=== PATIENT | female | born 1940 | race Caucasian/White ===

== ENCOUNTER 2016-12-11 17:40 | Emergency (ER) | payer OTHER ==
[2016-12-11 18:06] VITALS: RESP 16; TEMP 97.8
--- NOTE | 2016-12-11 21:49 | PDOC ---
Hand / Wrist Injury HPI - General Chief Complaint: Upper Extremity Problem/Injury Stated Complaint: LEFT WRIST PAIN Date Seen by Provider: 12/11/16 Time Seen by Provider: 17:45 Source: POSITIVE: Patient Exam Limitations: POSITIVE: No limitations Nurse's Notes Reviewed & Considered: Yes - History of Present Illness Initial Comments: The patient is a 76-year-old female who presents to the emergency department with complaints of left wrist pain. She states that while at work yesterday she was lifting a case of water when she felt a pop in her left wrist at the base of her thumb. She stated that she was able to finish working however she has had pain primarily with movement at the base of her left thumb since then. This does not seem to be improving and she therefore presented here to the emergency room for evaluation. She denies any other associated injuries or complaints. She has had previous carpal tunnel in the left hand and wrist however denies any previous injury or fracture. Have you received a tetanus shot in the past 10 years?: Yes - Patient Home Medications Home Medications: Home Medications Flonase 2 spr NASAL QD #1 inhaler 01/31/13 Mometasone/Formoterol [Dulera 200 Mcg/5 Mcg Inhaler] 2 puff INH BID #1 inhaler 01/31/13 Neomycin Mullen/Colist/Hc/Thonzon [Cortisporin-Tc Ear Susp] 10 ml OT 4XW #1 bottle 01/31/13 Apixaban [Eliquis] Sample #1 09/06/13 - Patient Allergies Allergies/Adverse Reactions: Allergies Allergy/AdvReac Type Severity Reaction Status Date / Time codeine Allergy Intermediate VOMITING Unverified 09/06/13 10:12 Penicillins Allergy Intermediate rash Unverified 09/06/13 10:12 morphine Allergy very Unverified 09/06/13 10:12 delayed recovery to drowsiness ranitidine HCl [From Zantac] Allergy rash, Unverified 09/06/13 10:12 swelling escitalopram oxalate AdvReac Intermediate out of Unverified 09/06/13 10:12 [From Lexapro] body feeling Past Medical History - heen HEENT History: Denies History Cardiovascular History: Denies History Respiratory History: Denies History Gastrointestinal History: Denies History Genitourinary History: Denies History Endocrine History: Denies History Musculoskeletal History: Arthritis, Osteoporosis Prosthesis or Implant: No Neurological History: Denies History Blood Disorders: Denies History Psychiatric History: Denies History History of Sexually Transmitted Diseases: No Female Reproductive History: Denies History Obstetrical History: Denies History Cancer History: Denies History In Past Year Been Physically Harmed or Verbally Threatened: No History of MDRO: No History of Other Communicable Diseases: No Tobacco Use: Current Every Day Smoker Alcohol Use: None Substance Use Type: None Previous Surgical History: Yes Type / Date of Surgery: BILATERAL CARPAL TUNNEL Anesthesia Reactions: No Malignant Hyperthermia: No Family History of Malignant Hyperthermia: No Significant Family History: No pertinent family hx Past Medical History Reviewed: Reviewed - No Changes ROS - Limitations ROS Limitations: No Limitations (Review of systems otherwise noncontributory) Hand / Wrist Injury Exam - General Appearance General Appearance: POSITIVE: Alert, Cooperative, No Acute Distress - Extremities Upper Extremity: POSITIVE: Other (examination left wrist does reveal mild swelling to the radial aspect of the wrist, she does have some snuffbox tenderness, no tenderness over the distal radius or ulna. She does have limited range of motion of the wrist secondary to pain, normal sensation and cap refill in her fingers) Neurovascular / Tendon: POSITIVE: Sensation Normal, No Vascular Compromise, Tendon Function Normal Hand / Wrist Injury Progress - Results Reviewed by me Xrays/CTs/US Reviewed by me: Yes Radiology Findings: X-ray of the left wrist reveals no obvious fracture. Radiology interpretation is pending. - Patient's Progress MDM / ED Course: The x-ray of the left wrist does not reveal any obvious fracture. She does have some snuffbox tenderness however she was placed in a Velcro thumb spica splint which she was advised to use for the next week. She was advised to continue Tylenol or ibuprofen as needed for pain. She is to follow-up with orthopedic surgery if continued pain in one week.. - Consult Counseled: POSITIVE: Patient, RE: Radiology Results, RE: DX, RE: Need for F/U Patient Care Time - Estimated PCT Patient Care Time (In Minutes): 15 Vital Signs - Recent Vital Signs Vital Signs: Vital Signs (Last 8 hours) Temp Pulse Resp BP Pulse Ox 12/11/16 17:59 97.8 F 80 16 185/104 95 12/11/16 17:44 97.8 F 80 16 185/104 95 - VS Reviewed Vital Signs Reviewed: Yes Discharge Clinical Impression: Left wrist sprain Discharge Disposition: Discharged to Home Condition: Stable Patient Instructions Given at Discharge: Wrist Sprain (ED) Additional Instructions: The x-ray of the left wrist does not reveal any obvious fracture. Recommend the Velcro wrist splint for comfort for the next week. You can take ibuprofen or Tylenol as needed for pain. Return to the emergency room if increased pain or swelling, numbness, worsening or change in symptoms. Recommend follow-up with orthopedic surgery if continued pain in one week. Follow Up With: NONE,NONE [Primary Care Provider] -
--- NOTE | 2016-12-12 10:57 | DI ---
XR WRIST COMPLETE MIN 3VW,12/11/2016 5:46 PM: Clinical History: Injury yesterday. Previous Exam: None at this facility. Findings: 3 views of the left wrist are obtained, and demonstrate a lucency extending through the distal pole o f the navicular not well seen on this exam. The lucency appears to represent the margin of the underl radha trapezium. Radiocarpal joint is unremarkable. There is mild diffuse osteopenia. Impression: Lucency involving the distal pole of the scaphoid worrisome for a scaphoid fracture although this may represent overlying shadows. Consider navicular view for further evaluation and correlate with snuff box tenderness.
== END 2016-12-11 18:34 | disposition home or self-care (01) ==
LOC: ER 17:40
DX: S63.502A Unspecified sprain of left wrist, initial encounter (principal); X50.0XXA Overexertion from strenuous movement or load, initial encounter; Y99.0 Civilian activity done for income or pay
CPT/HCPCS: 73110; 99282

== ENCOUNTER 2019-03-14 17:11 | Inpatient (IN) ==
[2019-03-14] MEDS ORDERED: methylPREDNISolone 125 MG/2 ML VIAL IVP ONE (17:32)
[2019-03-14] MEDS ORDERED: cefTRIAXone Inj 2 GM in Sodium Chloride 0.9% 100 ML IV ONE (17:32)
[2019-03-14] MEDS ORDERED: Sodium Chloride 0.9% 500 ML PRIMARY IV ONE (17:35)
[2019-03-14 17:44] LABS: BASOPHILS # (AUTO) 0.05 10*3/UL; BASOPHILS % (AUTO) 0.3 % (0-1); EOSINOPHILS # (AUTO) 0.05 10*3/UL; EOSINOPHILS % (AUTO) 0.3 % (0-8); Hematocrit [HCT] 42.8 % (37.0-47.0); Hemoglobin [HGB] 13.7 g/dL (12.0-16.0); LYMPHOCYTES # (AUTO) 1.58 10*3/uL; MEAN CORPUSCULAR VOLUME 92.4 FL (81-99); MEAN PLATELET VOLUME 9.1 FL (7.4-12.2); MONOCYTES # (AUTO) 1.08 10*3/UL (0.3-0.8); MONOCYTES % (AUTO) 7.4 % (5-15); NEUTROPHILS # (AUTO) 11.71 10*3/UL; NEUTROPHILS % (AUTO) 80.9 % (50-80); RED BLOOD COUNT 4.63 10^6/uL (4.20-5.40)
[2019-03-14 17:45] LABS: PLATELET MORPHOLOGY COMMENT NORMAL MORPHOLOGY (NORM); RBC MORPHOLOGY COMMENT NORMAL MORPHOLOGY (NORM); WBC MORPHOLOGY COMMENT NORMAL MORPHOLOGY (NORM)
[2019-03-14 17:53] LABS: BLOOD UREA NITROGEN 9 mg/dL (7-22); SERUM ALBUMIN 3.8 g/dL (3.5-4.8)
[2019-03-14] MEDS ORDERED: ALBUTEROL SULFATE 2.5 MG/3 ML NEB ONE (18:54)
[2019-03-14 18:58] LABS: BILIRUBIN,URINE SMALL (NEG); CLARITY,URINE CLEAR (CLEAR); COLOR,URINE YELLOW (Y); GLUCOSE, URINE (UA) NEGATIVE (NEG); OCCULT BLOOD,URINE NEGATIVE (NEG); PROTEIN,URINE TRACE mg/dl (NEG); URINE SAMPLE TYPE CLEAN CATCH URINE
[2019-03-14] MEDS ORDERED: ACETAMINOPHEN 325 MG TABLET PO ONE (19:23)
[2019-03-14 19:31] LABS: ABG BASE EXCESS -3 MMOL/L (-2-2); ABG OXYGEN SATURATION 94 % (90-100); ABG PCO2 35.9 MMHG (34-38); ABG PO2 71 MMHG (65-75); ALLEN TEST accept; COLLECTION SITE R Radial
[2019-03-14] MEDS ORDERED: LIDOCAINE W/ SODIUM BICARB 0.5 ML SYR SUBD PRN (20:07)
[2019-03-14] MEDS: [UNRECOGNIZED DRUG - OTHER] TOPICAL SCH (20:27)
[2019-03-14] MEDS: HYDROCORTISONE TOPICAL SCH (20:27)
[2019-03-14] MEDS: COLISTIN TOPICAL SCH (20:27)
[2019-03-14] MEDS: NEOMYCIN TOPICAL SCH (20:27)
[2019-03-14] MEDS: cefTRIAXone Inj 2 GM in Sodium Chloride 0.9% 100 ML IV SCH (20:27)
[2019-03-14] MEDS: predniSONE Tab 20 MG TAB PO SCH (20:28)
[2019-03-14] MEDS: ASCORBIC ACID Chewable 500 MG TABLET PO SCH (20:31)
[2019-03-14] MEDS: IPRATROPIUM/ALBUTEROL SULFATE 3 ML NEB NEB SCH (22:04)
[2019-03-14] MEDS: ALBUTEROL SULFATE 2.5 MG/3 ML NEB PRN (22:25)
[2019-03-15] MEDS ORDERED: OSELTAMIVIR PHOSPHATE 75 MG CAPSULE PO SCH ×2 (02:00→02:30)
[2019-03-15] MEDS: ALBUTEROL SULFATE 2.5 MG/3 ML NEB PRN ×2 (02:33→23:48)
[2019-03-15] MEDS: OSELTAMIVIR PHOSPHATE 6 MG/1 ML -60 ML ORAL SUSP PO SCH ×3 (02:40→20:59)
[2019-03-15 04:47] LABS: BASOPHILS # (AUTO) 0.01 10*3/UL; BASOPHILS % (AUTO) 0.1 % (0-1); EOSINOPHILS # (AUTO) 0 10*3/UL; EOSINOPHILS % (AUTO) 0 % (0-8); Hematocrit [HCT] 35.4 % (37.0-47.0); Hemoglobin [HGB] 11.4 g/dL (12.0-16.0); LYMPHOCYTES # (AUTO) 0.41 10*3/uL; MEAN CORPUSCULAR HGB CONC 32.2 g/dL (33-37); MEAN CORPUSCULAR VOLUME 92.9 FL (81-99); MEAN PLATELET VOLUME 9.7 FL (7.4-12.2); MONOCYTES # (AUTO) 0.16 10*3/UL (0.3-0.8); MONOCYTES % (AUTO) 1.5 % (5-15); NEUTROPHILS # (AUTO) 10.12 10*3/UL; NEUTROPHILS % (AUTO) 94.4 % (50-80); RED BLOOD COUNT 3.81 10^6/uL (4.20-5.40)
[2019-03-15 04:59] LABS: PLATELET MORPHOLOGY COMMENT NORMAL MORPHOLOGY (NORM); RBC MORPHOLOGY COMMENT NORMAL MORPHOLOGY (NORM); WBC MORPHOLOGY COMMENT NORMAL MORPHOLOGY (NORM)
[2019-03-15] MEDS: IPRATROPIUM/ALBUTEROL SULFATE 3 ML NEB NEB SCH ×4 (07:08→19:55)
[2019-03-15] MEDS: predniSONE Tab 20 MG TAB PO SCH (08:15)
[2019-03-15] MEDS: ASCORBIC ACID Chewable 500 MG TABLET PO SCH (08:15)
[2019-03-15] MEDS: FLUTICASONE PROPIONATE 16 GRAM (120 SPRAYS / BOTTLE) ENOS SCH (08:16)
[2019-03-15] MEDS: HYDROCORTISONE TOPICAL SCH (09:21)
[2019-03-15] MEDS: [UNRECOGNIZED DRUG - OTHER] TOPICAL SCH (09:21)
[2019-03-15] MEDS: NEOMYCIN TOPICAL SCH (09:21)
[2019-03-15] MEDS: COLISTIN TOPICAL SCH (09:21)
[2019-03-15 12:47] LABS: BLOOD UREA NITROGEN 17 mg/dL (7-22); SERUM ALBUMIN 3.3 g/dL (3.5-4.8)
[2019-03-15] MEDS: cefTRIAXone Inj 2 GM in Sodium Chloride 0.9% 100 ML IV SCH (20:59)
[2019-03-16] MEDS: ALBUTEROL SULFATE 2.5 MG/3 ML NEB PRN (04:22)
[2019-03-16 05:26] LABS: BASOPHILS # (AUTO) 0.02 10*3/UL; BASOPHILS % (AUTO) 0.2 % (0-1); EOSINOPHILS # (AUTO) 0.06 10*3/UL; EOSINOPHILS % (AUTO) 0.5 % (0-8); Hematocrit [HCT] 35.8 % (37.0-47.0); Hemoglobin [HGB] 11.1 g/dL (12.0-16.0); LYMPHOCYTES # (AUTO) 1.82 10*3/uL; MEAN PLATELET VOLUME 10.1 FL (7.4-12.2); MONOCYTES # (AUTO) 0.99 10*3/UL (0.3-0.8); MONOCYTES % (AUTO) 8.3 % (5-15); NEUTROPHILS # (AUTO) 9.03 10*3/UL; NEUTROPHILS % (AUTO) 75.5 % (50-80); RED BLOOD COUNT 3.69 10^6/uL (4.20-5.40)
[2019-03-16 05:29] LABS: PLATELET MORPHOLOGY COMMENT NORMAL MORPHOLOGY (NORM); RBC MORPHOLOGY COMMENT NORMAL MORPHOLOGY (NORM); WBC MORPHOLOGY COMMENT NORMAL MORPHOLOGY (NORM)
[2019-03-16 05:44] LABS: BLOOD UREA NITROGEN 12 mg/dL (7-22); SERUM ALBUMIN 3.2 g/dL (3.5-4.8)
[2019-03-16] MEDS: IPRATROPIUM/ALBUTEROL SULFATE 3 ML NEB NEB SCH ×4 (06:57→19:30)
[2019-03-16] MEDS: predniSONE Tab 20 MG TAB PO SCH (08:24)
[2019-03-16] MEDS: OSELTAMIVIR PHOSPHATE 6 MG/1 ML -60 ML ORAL SUSP PO SCH ×2 (08:24→21:10)
[2019-03-16] MEDS: ASCORBIC ACID Chewable 500 MG TABLET PO SCH (08:24)
[2019-03-16] MEDS: FLUTICASONE PROPIONATE 16 GRAM (120 SPRAYS / BOTTLE) ENOS SCH (08:25)
[2019-03-16] MEDS: cefTRIAXone Inj 2 GM in Sodium Chloride 0.9% 100 ML IV SCH (21:10)
[2019-03-17] MEDS: ALBUTEROL SULFATE 2.5 MG/3 ML NEB PRN (02:53)
[2019-03-17] MEDS: IPRATROPIUM/ALBUTEROL SULFATE 3 ML NEB NEB SCH ×2 (06:28→10:26)
[2019-03-17 07:18] VITALS: BP 165/93; TEMP 97.3
[2019-03-17] MEDS: FLUTICASONE PROPIONATE 16 GRAM (120 SPRAYS / BOTTLE) ENOS SCH (09:09)
[2019-03-17] MEDS: predniSONE Tab 20 MG TAB PO SCH (09:10)
[2019-03-17] MEDS: ASCORBIC ACID Chewable 500 MG TABLET PO SCH (09:10)
[2019-03-17] MEDS: OSELTAMIVIR PHOSPHATE 6 MG/1 ML -60 ML ORAL SUSP PO SCH ×2 (09:10→11:05)
[2019-03-17] MEDS ORDERED: [UNRECOGNIZED DRUG - OTHER] INH SCH (10:15)
[2019-03-17 10:27] VITALS: RESP 18
[2019-03-17 10:56] VITALS: O2SAT 97
== END 2019-03-17 11:44 | disposition home or self-care (01) | DRG 191 ==
LOC: ER 17:11 → MED/SURG 19:24
PROVIDERS: ADMIT Internal Medicine; ATTEND Internal Medicine